=== PATIENT | male | born 1990 | race Caucasian/White ===

== ENCOUNTER 2018-08-20 03:04 | Emergency (ER) | payer OTHER ==
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
== END 2018-08-20 03:36 | disposition home or self-care (01) ==
LOC: ER 03:04
DX: S00.81XA Abrasion of other part of head, initial encounter (principal); V49.40XA Driver injured in collision with unspecified motor vehicles in traffic accident, initial encounter; Z72.0 Tobacco use
CPT/HCPCS: 99283

== ENCOUNTER 2018-08-22 18:18 | Emergency (ER) | payer OTHER ==
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
== END 2018-08-22 19:59 | disposition home or self-care (01) ==
LOC: ER 18:18
DX: S06.0X0A Concussion without loss of consciousness, initial encounter (principal); V47.5XXA Car driver injured in collision with fixed or stationary object in traffic accident, initial encounter
CPT/HCPCS: 70450; 72125; 99284

== ENCOUNTER 2022-05-29 15:18 | Emergency (ER) | payer BC ==
[2022-05-29] MEDS ORDERED: NA CHLORIDE 0.9% 1,000 ML ONE (15:56)
[2022-05-29] MEDS ORDERED: LIDOCAINE VISCOUS 2% SOLN 15 ML UDC ONE (15:58)
[2022-05-29] MEDS ORDERED: MAGNES/ALUMIN/SIMET 30ML UCUP ONE (15:58)
[2022-05-29 16:23] LABS: Absolute Lymphocytes (CBC) 0.3 K/uL (0.7-4.9); Hematocrit 42.8 % (39.6-49.0); Lymphocytes % 1.6 % (15.3-44.8); MPV 8.4 fL (7.6-11.3); RBC Red Blood Cell Count 4.92 M/uL (4.33-5.43)
[2022-05-29 16:38] LABS: Potassium 3.8 mmol/L (3.5-5.1)
--- NOTE | 2022-05-29 17:54 | RAD REPORT ---
EXAM DESCRIPTION: CT - Soft Tissue Neck W/Contr CLINICAL HISTORY: r/o peritonsillar abscess COMPARISON: Head C Spine Mpr Wo Con dated 08/22/2018; SOFT TISSUE NECK W CONTRAST dated 05/20/2007 TECHNIQUE Thin cut axial CT images of the neck performed following intravenous administration of 90 mL Isovue-300. Multiplanar reformats were generated and reviewed. All CT scans are performed using dose optimization technique as appropriate and may include automated exposure control or mA/KV adjustment according to patient size. FINDINGS: Bilateral prominence of the palatine tonsils, with striated enhancement pattern, with asym metric enlargement of the right tonsil. No peritonsillar fat stranding, and no intra or. Tonsillar fl uid collections. The pattern of asymmetric enlargement. Grossly stable dating back to 2007, allowing for differences i n the assessment given noncontrast technique on the prior exam. The adenoidal tissues are only minimally prominent. Nasopharyngeal tissues are otherwise normal in appearance. Fossa Rosenmller are normal. Parapharyngeal fat triangles are symmetric. Tongue base structures are normal. Epiglottis and aryepiglottic folds are normal. Piriform sinuses are well aerated. The vocal cords are normal in appearance. Salivary glands are normal in appearance. Upper lung preciado are clear. Included intracranial contents are unremarkable. IMPRESSION: No acute findings in the neck. Stable pattern of asymmetric hypertrophy of the palatine tonsils, more pronounced on the right, likel y reactive, with no evidence of intra or peritonsillar abscess formation.
--- NOTE | 2022-05-29 18:21 | ER ---
Nurse's Notes [facility] Name: Mega Lovelace Age: 31 yrs Sex: Male : 1990 Arrival Date: 05/29/2022 Time: 15:22 Bed 10 Private MD: Diagnosis: Acute tonsillitis, unspecified Presentation: 05/29 15:45 Chief complaint: Patient states: sore throat, fever, enlarged tonsils. Coronavirus eh3 screen: Vaccine status: Patient reports being unvaccinated. Ebola Screen: No symptoms or risks identified at this time. Risk Assessment: Do you want to hurt yourself or someone else? Patient reports no desire to harm self or others. Onset of symptoms was May 29, 2022. 15:45 Method Of Arrival: Ambulatory [facility] 15:45 Acuity: JERO 3 3 15:45 Initial Sepsis Screen: Does the patient meet any 2 criteria? No. Patient's initial 3 sepsis screen is negative. Does the patient have a suspected source of infection? No. Patient's initial sepsis screen is negative. Triage Assessment: 15:45 General: Appears in no apparent distress. uncomfortable, Behavior is calm, cooperative, eh3 appropriate for age. Pain: Complains of pain in throat, body aches. EENT: Throat is reddened has enlarged tonsils bilaterally. Neuro: Level of Consciousness is awake, alert, obeys commands, Oriented to person, place, time, situation. Cardiovascular: Capillary refill < 3 seconds Patient's skin is warm and dry. Respiratory: Airway is patent Respiratory effort is even, unlabored, Respiratory pattern is regular, symmetrical. GI: Abdomen is round non-distended. : No signs and/or symptoms were reported regarding the genitourinary system. Derm: Skin is pink, warm \T\ dry. Musculoskeletal: Circulation, motion, and sensation intact. Range of motion: intact in all extremities. Historical: - Allergies: 15:45 No Known Allergies; eh3 - Home Meds: 15:45 None [Active]; eh3 - PMHx: 15:45 None; eh3 - PSHx: 15:45 Left knee surgery; eh3 - Immunization history:: Adult Immunizations up to date. - Social history:: Smoking status: Reported history of juuling and/or vaping. Screenin:00 [facility] ED Fall Risk Assessment (Adult) Score/Fall Risk Level 0 - 2 = Low Risk. Abuse eh3 screen: Denies threats or abuse. Denies injuries from another. Nutritional screening: No deficits noted. Tuberculosis screening: No symptoms or risk factors identified. Assessment: 16:00 Reassessment: No changes from previously documented assessment. See triage assessment. eh3 Respiratory: Airway is patent Respiratory effort is even, unlabored, Respiratory pattern is regular, symmetrical, Breath sounds are clear bilaterally. 17:00 Reassessment: Patient appears in no apparent distress at this time. Patient and/or eh3 family updated on plan of care and expected duration. Pain level reassessed. Patient is alert, oriented x 3, equal unlabored respirations, skin warm/dry/pink. 18:00 Reassessment: Patient appears in no apparent distress at this time. Patient and/or eh3 family updated on plan of care and expected duration. Pain level reassessed. Patient is alert, oriented x 3, equal unlabored respirations, skin warm/dry/pink. Vital Signs: 15:45 Weight 74.84 kg; Height 5 ft. 10 in. (177.80 cm); Pain 4/10; eh3 15:45 BP 127 / 71; Pulse 88; Resp 18; Temp 99.0(O); Pulse Ox 99% on R/A; eh3 15:45 Body Mass Index 23.67 (74.84 kg, 177.80 cm) 3 ED Course: 15:22 Patient arrived in ED. mr 15:28 David Cookistin, [facility]. kb 15:28 Roni Wen MD is Attending Physician. kb 15:28 Arm band placed on. aa5 15:41 Anne Colmenares, NOHELIA is Primary Nurse. 3 16:00 Triage completed. eh3 16:00 Patient has correct armband on for positive identification. Bed in low position. Call [facility] light in reach. Side rails up X 1. Adult w/ patient. Pulse ox on. NIBP on. Door closed. Noise minimized. Lights dimmed. Warm blanket given. Pillow given. 16:00 Inserted saline lock: 20 gauge in right upper arm, using aseptic technique. Blood iw collected. 17:37 CT Soft Tissue Neck W/contr In Process Unspecified. EDMS 19:00 No provider procedures requiring assistance completed. IV discontinued, intact, eh3 bleeding controlled, No redness/swelling at site. Pressure dressing applied. Administered Medications: 16:00 Drug: NS 0.9% 1000 ml Route: IV; Rate: 1000 ml; Site: right antecubital; iw 18:00 Follow up: IV Status: Completed infusion; IV Intake: 800ml 3 16:00 Drug: GI Cocktail without - (Maalox Suspension 30 ml, Lidocaine Liquid 2 % 15 iw ml) Route: PO; 16:30 Follow up: Response: Pain is decreased eh3 Medication: 18:00 VIS not applicable for this client. eh3 Intake: 18:00 IV: 800ml; Total: 800ml. 3 Outcome: 18:21 Discharge ordered by . hien 19:00 Discharged to home ambulatory. 3 19:00 Condition: stable 19:00 Discharge instructions given to patient, Instructed on discharge instructions, follow up and referral plans. medication usage, Demonstrated understanding of instructions, follow-up care, medications, Prescriptions given X 1. 19:09 Patient left the ED. 3 Signatures: Dispatcher [employer] EDMS Madison Cook, NEON TUBE PUMPER-C NEON TUBE PUMPER-CkLida Donaldson mr Carrie De La Cruz, RN RN iw Alicja Ni, RN RN aa5 Anne Colmenares, NOHELIA RN 3 Corrections: (The following items were deleted from the chart) 17:20 15:45 Coronavirus screen: Vaccine status: Patient reports receiving the 2nd dose of the 3 covid vaccine. 3 03/03 00:22 03/02 17:19 Triage completed. 3 3
--- NOTE | 2022-05-29 18:21 | EDPHYS ---
Physician Documentation [facility] Name: Mega Lovelace Age: 31 yrs Sex: Male : 1990 Arrival Date: 05/29/2022 Time: 15:22 Bed 10 Private MD: ED Physician Roni Wen HPI: 05/29 17:29 This 31 yrs old Male presents to ER via Ambulatory with complaints of Sore Throat, kb Fever. 17:29 The patient presents with sore throat. The patient describes throat pain as constant. kb Onset: The symptoms/episode began/occurred last night. Severity of symptoms: At their worst the symptoms were moderate, in the emergency department the symptoms are unchanged. Modifying factors: The symptoms are alleviated by nothing, the symptoms are aggravated by swallowing, Patient's oral intake status: good. Associated signs and symptoms: Pertinent positives: fever, Sore throat. The patient has not experienced similar symptoms in the past. The patient has not recently seen a physician. Historical: - Allergies: 15:45 No Known Allergies; eh3 - Home Meds: 15:45 None [Active]; eh3 - PMHx: 15:45 None; eh3 - PSHx: 15:45 Left knee surgery; eh3 - Immunization history:: Adult Immunizations up to date. - Social history:: Smoking status: Reported history of juuling and/or vaping. ROS: 17:29 Abdomen/GI: Negative for abdominal pain, nausea, vomiting, diarrhea, and constipation. kb 17:29 Constitutional: Positive for fever, malaise. 17:29 ENT: Positive for sore throat. 17:29 All other systems are negative. Exam: 17:29 Constitutional: This is a well developed, well nourished patient who is awake, alert, kb and in no acute distress. Head/Face: Normocephalic, atraumatic. Cardiovascular: Regular rate and rhythm with a normal S1 and S2. No gallops, murmurs, or rubs. No pulse deficits. Respiratory: Respirations even and unlabored. No increased work of breathing. Talking in full sentences Skin: Warm, dry with normal turgor. Normal color. MS/ Extremity: Pulses equal, no cyanosis. Neurovascular intact. Full, normal range of motion. Neuro: Awake and alert, GCS 15, oriented to person, place, time, and situation. Moves all extremities. Normal gait. 17:29 ENT: Posterior pharynx: Airway: normal, no evidence of obstruction, Tonsils: enlarged on the right, with erythema, no exudate, Uvula: normal, midline, swelling, that is moderate, erythema, that is marked. Vital Signs: 15:45 Weight 74.84 kg; Height 5 ft. 10 in. (177.80 cm); Pain 4/10; eh3 15:45 BP 127 / 71; Pulse 88; Resp 18; Temp 99.0(O); Pulse Ox 99% on R/A; eh3 15:45 Body Mass Index 23.67 (74.84 kg, 177.80 cm) eh3 MDM: 15:30 Patient medically screened. kb 17:25 Differential diagnosis: Strep, tonsillitis, peritonsillar abscess. Data reviewed: vital kb signs, nurses notes. ED course: Patient is a 31-year-old male who presents for fever, malaise, sore throat that started last night. Had a TeleDoc visit this morning and was prescribed 1 dose of Decadron 10 mg p.o. and 10 days of clindamycin. On exam patient has marked erythema with moderate swelling to right tonsil. No exudate noted. Respirations even and unlabored. Lungs clear throughout. Serum labs and CT soft tissue neck ordered to rule out peritonsillar abscess.. 18:20 Counseling: I had a detailed discussion with the patient and/or guardian regarding: the kb historical points, exam findings, and any diagnostic results supporting the discharge/admit diagnosis, lab results, radiology results, the need for outpatient follow up, an ENT specialist, to return to the emergency department if symptoms worsen or persist or if there are any questions or concerns that arise at home. 05/29 15:39 Order name: IV Start; Complete Time: 16:22 kb 05/29 15:39 Order name: CBC with Diff; Complete Time: 16:32 kb 05/29 15:39 Order name: Basic Metabolic Panel; Complete Time: 16:44 kb 05/29 15:39 Order name: CT Soft Tissue Neck W/contr; Complete Time: 18:00 kb 05/29 17:28 Order name: Strep kb Administered Medications: 16:00 Drug: NS 0.9% 1000 ml Route: IV; Rate: 1000 ml; Site: right antecubital; iw 18:00 Follow up: IV Status: Completed infusion; IV Intake: 800ml 3 16:00 Drug: GI Cocktail without - (Maalox Suspension 30 ml, Lidocaine Liquid 2 % 15 iw ml) Route: PO; 16:30 Follow up: Response: Pain is decreased eh3 Disposition: 19:26 Co-signature as Attending Physician, Roni Wen MD I reviewed the patient's care rn provided by the Advanced Practice Provider and agree with the diagnosis and treatment plan. Disposition Summary: 05/29/22 18:21 Discharge Ordered Location: Home kb Condition: Stable kb Diagnosis - Acute tonsillitis, unspecified kb Followup: kb - With: Emergency Department - When: As needed - Reason: Worsening of condition Followup: kb - With: Private Physician - When: 2 - 3 days - Reason: Recheck today's complaints, Continuance of care, Re-evaluation by your physician Discharge Instructions: - Discharge Summary Sheet kb - Tonsillitis, [id number] kb Forms: - Medication Reconciliation Form kb - Thank You Letter kb - Antibiotic Education kb - Prescription Opioid Use kb Prescriptions: - Augmentin ES-600 600-42.9 mg/5 mL Oral Suspension for Reconstitution - take 7.2 milliliters by ORAL route every 12 hours for 10 days Max = 875mg/dose; kb 150 milliliter; Refills: 0, Product Selection Permitted Signatures: Dispatcher [employer] Madison Bustamante, LIZ FLETCHERP-Carrie Lan, Roni Bonilla RN, MD MD rn Hall, Erin, RN RN [facility]
[2022-05-29 19:18] VITALS: BP 127/71; TEMP 99; O2SAT 99
== END 2022-05-29 19:09 | disposition home or self-care (01) ==
LOC: ER 15:18
DX: J03.90 Acute tonsillitis, unspecified (principal)
CPT/HCPCS: 96361; 85025; 80048; 36415; 70491; 96360; 99284; Q9967; J7030